=== PATIENT | male | born 1985 | race Caucasian/White ===

== ENCOUNTER 2022-11-18 02:06 | Outpatient (OUT) | payer OTHER, SELFPAY ==
--- NOTE | 2022-11-18 02:18 | ED.GENADUL1 ---
HPI - General Adult General Stated complaint: OD Time Seen by Provider: 11/18/22 02:18 History of Present Illness HPI narrative: The patient brought in to the emergency department via EMS and PD with a complaint of an overdose. Patient has a history of drug abuse. He recently got out of pen[facility]entiary and was living with his sister. Sister called EMS for an overdose. EMS reports the patient was agitated. He did not have any respiratory suppression was awake alert and they did not have to give any Narcan. The patient has a daughter and he started to get his life back together so he states that the only reason he agreed to come in was to get all of his things in order. Patient denies any suicide, or homicidal ideation. He states he used amphetamines last week but he does not use any other drugs. He denies any chest pain, or shortness of breath. He does not have any somatic complaints. He states he has a history of depression and he is taking his medications. He is cooperative and does not want to have any blood work or urinalysis done. He states his preferences just to home and continue with his plans to get his life back in order. He denies drinking any alcohol. Review of Systems ROS Narrative ROS: Unless otherwise stated in this report the patient's positive and negative responses for review of systems for constitutional, eyes, ENT, cardiovascular, respiratory, gastrointestinal, neurological, , musculoskeletal and integument systems and related systems to the presenting problem are either stated in the history of present illness or were not pertinent or were negative for the symptoms and/or complaints related to the presenting medical problem. Exam Narrative Exam Narrative: Nurses notes and vital signs reviewed and patient is not hypoxic. General: Nontoxic, Well-appearing and in no apparent distress. Skin: Warm, dry, no pallor noted. No Rash Head: Normocephalic, atraumatic. Neck: Supple, non-tender. Eye: Pupils are equal, round and EOMI. No scleral icterus. Ears, Nose, Mouth, and Throat: TM clear, no posterior oropharynx erythema or nasal mucosal hypertrophy, uvula is mid-line Oral mucosa is moist Cardiovascular: Regular tachycardia without murmur, gallop or rub. Respiratory: No accessory muscle use or respiratory distress. Lungs are clear to auscultation, no wheezing, rales or rhonchi Chest Wall: no tenderness Back: No midline thoracic or lumbar vertebral tenderness. No CVA tenderness Musculoskeletal: normal ROM, no calf or popliteal tenderness, no lower extremity edema/swelling GI: Abdomen is soft, non-distended. Normal bowel sounds. No masses appreciated. No tenderness to palpation. No rebound, guarding, or rigidity noted. Neurological: A&O x4. No cranial nerve dysfunction observed. No truncal ataxia. Moves all extremities. Sensation intact. Psychiatric: Cooperative Normal mood and affect. Not suicidal, not homicidal Medical Decision Making MDM Narrative Medical decision making narrative: Patient cooperated with our evaluation. Patient was discussed with [facility] Mcgovern. They were attending another crisis and they advised that they would call back. However, the patient stated he did not want to wait for [facility] to do an evaluation he states that he can call them in the morning. He states he has to go to work tomorrow and wants to go home. Patient is awake alert oriented ?4. Does not have any suicide, homicide ideation. He does not have any cognitive impairment, And I cannot hold him here against his will. He has been cooperative he states that he understands what he had to come in and he will continue to do his mental health evaluation as an outpatient. He does not have any weapons at home. At this time the patient is without objective evidence of an acute process requiring hospitalization or inpatient management. The patient has remained hemodynamically stable. No additional indication for emergent studies at this time. I answered all questions. Discussed discharge instructions including standard anticipatory guidance and what should prompt a return to the emergency department, including if they get worse are not getting better or develops any new or concerning symptoms. I've given them specific time frame in which to follow-up, and who to follow-up with. The patient demonstrates understanding. Patient is nontoxic and stable for discharge with outpatient follow-up. This note was created with the assistance of a speech recognition program. Although the intention is to generate documents that actually reflects the content of the visit, no guarantees can be provided that every mistake has been identified and corrected by editing. Discharge Plan Discharge Clinical Impression: Depression Patient Disposition: Home, Self-Care Mode of Transportation: Private Vehicle Follow Up Appointments: pt fu with [facility]- paper chart. down time Discharge Date/Time: 11/18/22 04:11
--- NOTE | 2022-11-18 06:13 | ECG_ITS ---
[facility] Test Date: 2022-11-18 Pat Name: Nehemiah Toussaint Department: Room: - Gender: Male Human Resource Advisor: : [id number] Requested By: [id number] Order Number: [id number] Reading MD: NEHEMIAH VALDEZ Measurements Intervals [place] Rate: 131 P: 226 ND: 182 QRS: 78 QRSD: 86 T: 51 QT: 320 QTc: 397 Interpretive Statements Sinus tachycardia with occasional ventricular premature complexes 0102 ARTIFACT PRESENT 9150 abnormal ECG No previous ECG available for comparison Electronically Signed On 11-19-2022 15:38:20 EDT by NEHEMIAH VALDEZ
== END 2022-11-18 04:38 ==
PROVIDERS: Emergency Provider Emergency Medicine; Visit Provider Emergency Medicine
DX: F32.A Depression, unspecified (principal)
CPT/HCPCS: 93005; 99283